=== PATIENT | female | born 1965 | race Caucasian/White ===

== ENCOUNTER 2024-05-12 08:01 | Outpatient (RCR) | payer OTHER, SELFPAY ==
--- NOTE | 2024-05-07 13:59 | PCPTNOTE ---
Patient called & cancelled scheduled appointment this date due to [moving and needing to reschedule]
--- NOTE | 2024-05-12 08:54 | PTOPEVAL1 ---
Assessment and note entered by Tae Duong Evaluation Information Assessment Status Evaluation ICD-10 Condition Codes (PT) M25.572 Onset 02/23/24 Subjective Information Pt. reports that in February she stepped in a hole and rolled the left ankle. She reports the ankle had pain, but the pain began to subside. She reports that 4 weeks later she re-injured the knee after twisting the left ankle. She cannot describe how her ankle had twisted. She describes pain on the inside of the left ankle and notices on/off swelling. 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 She states that pain is worsened with standing and walking, but pain reduces with sitting and rest. She reports that her goal is to improve her ankle strength to prevent anymore injuries and reduce her pain. Reported Pain Level Pain Score 4: Self Report Assessment PT Clinical Summary Pt. is a 58 year old female who enters the clinic with a diagnosis of left ankle pain. She appears to have posterior tibialis involvement on this date. She currently presents with impaired ROM, impaired strength at the ankle on the left, impaired balance, impaired gait, and pain on this date. Continued skilled PT is indicated in order to improve these areas to allow the pt. to be able to complete all IADL's without pain. Plan of Care Interventions Electrical Stimulation,Gait Training,Hot Pack/Cold Pack,Manual Therapy,Neuro Re-education,Patient/ Caregiver Educati,Therapeutic Activities, Therapeutic Exercise PT Services Indicated Yes Treatment Frequency and 3x/week x 12 visits Duration These treatments will address the objective and functional deficits as defined above. The patient will be advanced safely and appropriately in order for the patient to progress towards his/her prior level of function. Additional exercises will be introduced and as well as a comprehensive home exercise program upon discharge, if needed, ?to ensure carryover of functional gains achieved in the clinic. This treatment plan has been reviewed and agreement upon by the patient.
--- NOTE | 2024-05-12 08:55 | OPREHPOC ---
Outpatient Therapy Plan of Care This is a Multidisciplinary Plan of Care that may contain components documented by all disciplines (PT, OT, and ST.) PT Problem 1 PT Problem #1 Knowledge Deficit PT Goal 1 Goal / Goal Update Pt. will be independent with a HEP addressing strength and stability at the ankle. Target Visit 2 PT Problem 2 PT Problem #2 Impaired Balance PT Goal 1 Goal / Goal Update Pt. will maintain single limb stance on the left x 30 seconds without LOB indicating improve ankle stability. Target Visit 12 PT Problem 3 PT Problem #3 Impaired Range of Motion PT Goal 1 Goal / Goal Update Pt. will achieve 10 degrees active left ankle dorsiflexion to assist with improved gait mechanics and improved ability to navigate uneven terrain. Target Visit 12 PT Problem 4 PT Problem #4 Impaired Strength PT Goal 1 Goal / Goal Update Pt. will complete 10 single limb heel raises on the left indicating improved gastroc strength to improve gait mechanics Target Visit 12 PT Problem 5 PT Problem #5 Impaired Functional Mobil PT Goal 1 Goal / Goal Update Pt. will complete the work day without reported pain. Pt. will present with less than 20% limitation on the LEFS indicating significant functional improvement. Target Visit 12
--- NOTE | 2024-06-04 14:17 | PTOPDC ---
Assessment and note entered by Tae Duong Evaluation Information Assessment Status Discharge ICD-10 Condition Codes (PT) M25.572 Onset 02/23/24 Subjective Information Pt. reports she has experienced no left ankle pain in the past week. She reports she has been able to complete the work day without pain. She states that she is continuing to exercise at home and is ready for discharge at this time. Reported Pain Level Pain Score 0: Self Report Assessment PT Clinical Summary Pt. has attended a total of 8 treatment sessions. She demonstrates progress in regards to strength, pain and ROM. Note some difficulty with single limb balance on the left, however pt. is able to function at a high level without pain. she is encouraged to continue with her HEP and will be discharged from our care at this time. Plan of Care PT Services Indicated No
== END 2024-06-04 15:35 | disposition home or self-care (01) ==
LOC: CHSPT 08:01
PROVIDERS: Visit Provider Registered Nurse
DX: S99.912A Unspecified injury of left ankle, initial encounter (principal)
CPT/HCPCS: 97110; 97112; 97150; 97161; 97530

== ENCOUNTER 2024-11-26 15:35 | Outpatient (CLI) | payer OTHER, SELFPAY ==
[2024-11-26 16:16] LABS: Strep Group A RT-PCR NOT DETECTED (Negative)
[2024-11-26 16:26] LABS: SARS-CoV-2 RNA PCR Negative (Negative)
[2024-11-26 16:27] LABS: Influenza A QL RT-PCR Negative (Negative); Influenza B QL RT-PCR Negative (Negative); RSV RNA, RT-PCR Negative (Negative)
== END 2024-11-26 15:36 | disposition home or self-care (01) ==
PROVIDERS: PCP Registered Nurse; Visit Provider Registered Nurse
DX: R05.9 Cough, unspecified (principal)
CPT/HCPCS: 87637; 87651